=== PATIENT | female | born 1970 | race Caucasian/White ===

== ENCOUNTER 2019-06-01 14:36 | Emergency (ER) | payer OTHER ==
[~2019-06-01] VITALS: Ht 160 cm; Wt 54.4 kg
[2019-06-01 15:40] LABS: ABSOLUTE NEUTROPHILS 5.7 thou/uL (1.4-8.2); BASOPHILS 0.5 % (0.0-2.0); EOSINOPHILS 0.7 % (0.0-3.0); HEMATOCRIT 37.9 % (37.0-47.0); HEMOGLOBIN 12.8 gm/dL (12.0-15.0); LYMPHOCYTES 9.4 % (24.0-44.0); MCH 32.6 pg (26.0-34.0); MCHC 33.8 g/dL (28.0-37.0); MCV 96.5 fL (80.0-100.0); MONOCYTES 7.9 % (1.0-8.0); PLATELET COUNT 201 thou/uL (150-400); POLYS 81.5 % (36.0-66.0); RBC 3.93 mil/uL (4.20-5.00); RDW 12.5 % (10.5-14.5)
[2019-06-01 15:43] LABS: ANION GAP 9 mmol/L (7-16); BUN 10 mg/dL (7-18); CALCIUM 8.7 mg/dL (8.5-10.1); CHLORIDE 101 mmol/L (98-107); CO2 26 mmol/L (21-32); CREATININE 0.8 mg/dL (0.6-1.0); GLUCOSE 125 mg/dL (74-106); POTASSIUM 3.7 mmol/L (3.5-5.1); SODIUM 136 mmol/L (136-145)
[2019-06-01 15:54] LABS: MAGNESIUM 1.7 mg/dL (1.8-2.4); TROPONIN-I <0.06 ng/mL (<0.06)
[2019-06-01] MEDS ORDERED: LIORESAL 10 MG10 MG PO (17:47)
[2019-06-01 17:48] VITALS: BP 111/66
--- NOTE | 2019-06-03 07:53 | EKG ---
[place] [address] [address] [facility] [place] [address] ELECTROCARDIOGRAM REPORT Name: LEDESMARASHMI Room #: DEP ANNIE Cameron#: [id number] Admission: 06/01/19 Attend Phys: Discharge: 06/01/19 Date of : 66 Report #: [id number] THIS REPORT FOR: //name// [facility] ED Test Date: 2019-06-01 Test Time: 15:11:29 Pat Name: RASHMI LEDESMA Department: Room: Gender: F Sales Training Representative: AZAR : 1970 Requested By: Raghav Klein Order Number: [id number] MD: Morgan Carlos Measurements Intervals [place] Rate: 94 P: 77 IL: 121 QRS: 80 QRSD: 86 T: 47 QT: 350 QTc: 438 Interpretive Statements Sinus rhythm Probable left atrial enlargement No previous ECG available for comparison Electronically Signed On 06-03-2019 7:53:47 CDT by Morgan Carlos [email or web address] <ELECTRONICALLY SIGNED> By: Morgan Carlos MD 06/03/19 [id number] 1511 Morgan Carlos MD /KARO
== END 2019-06-01 17:48 | disposition home or self-care (01) ==
LOC: ER 14:36
PROVIDERS: Emergency Medicine
DX: R51 Headache (principal)

== ENCOUNTER → 2021-05-03 | Outpatient (CLI) | payer OTHER ==
[~2021-05-03] MED LIST: LIORESAL 10 MG10 MG PO
== END ==
LOC: BC 08:36
PROVIDERS: ATTEND Family Medicine
DX: Z12.31 Encounter for screening mammogram for malignant neoplasm of breast (principal)